=== PATIENT | female | born 1990 | race Hispanic/Latino ===

== ENCOUNTER 2024-02-27 21:44 | Emergency (ER) | payer OTHER ==
[2024-02-27 22:22] LABS: Bilirubin Negative (Negative); Blood, Urine 3+ (Negative); CAUTI Indications for Culture Acute Hematuria; Clarity Turbid (Clear); Glucose, Urine (Dipstick) Normal (Negative); Ketone, Urine Negative (Negative); Leukocyte Negative Leu/uL (Negative); Nitrite Negative (Negative); Pregnancy Test - Urine (BHCG) Negative (Negative); Pregu Control Background? CLEAR/WHITE (CLR/WHITE); Pregu Control Bar Appear? YES (CONTROL BAR); Protein, Urine (Dipstick) 50 mg/dL (Neg-Trace); RBC/HPF Greater than 50 HPF (0-3); Specific Gravity 1.026 (1.002-1.036); Specific Gravity, Urine 1.026 (1.002-1.036); Squamous Epithelial 0-3 HPF (0-3); Urobilinogen Normal mg/dL (Less than 2); WBC/HPF 0-3 HPF (0-3); pH, Urine 5.5 (5.0-9.0)
[2024-02-27 22:23] LABS: Bacteria/HPF 1+ HPF (None Seen); Urine Culture Reflex No No
[2024-02-27 23:15] LABS: #Basophils 0.04 10x3/uL (0.0-0.2); %Basophils 0.3 % (0.0-1.0); %Eosinophils 0.6 % (0.0-10.0); %Lymphocytes 13.5 % (21.0-51.0); %Monocytes 6.9 % (0.0-10.0); %Neutrophils 78.4 % (42.0-75.0); Hematocrit 46.4 % (36.0-47.0); Hemoglobin 15.8 g/dL (12.0-16.0); Mean Corpuscular HGB CONC 34.1 g/dL (32.0-36.0); Mean Corpuscular Hemoglobin 29.2 pg (27.0-31.0); Mean Corpuscular Volume 85.6 fL (78.0-98.0); Mean Platelet Volume 10.2 fL (7.4-10.4); Platelet Count 332 10x3/uL (130-400); RBC Distribution Width 12.7 % (11.5-14.5); Red Blood Cell (RBC) Count 5.42 mill/uL (4.20-5.40)
[2024-02-27] MEDS ORDERED: Ketorolac Tromethamine 30 MG (1 mL) VIAL ONE (23:17)
[2024-02-27] MEDS ORDERED: Ondansetron PF 4 MG/2 ML Vial ONE (23:27)
[2024-02-27] MEDS ORDERED: Morphine 4 MG/ML VIAL ONE (23:39)
[2024-02-27 23:50] LABS: ALT (SGPT) 34 U/L (8-55); AST (SGOT) 19 U/L (5-34); Albumin 3.8 g/dL (3.5-5.0); Alkaline Phosphatase 69 U/L (40-110); Anion Gap 15 mmol/L (10-20); BUN (Urea Nitrogen) 11 mg/dL (7.0-18.7); Bilirubin, Total 0.4 mg/dL (0.2-1.2); Calc. Creatinine Clearance 0 mL/min (70-130); Calcium 9.5 mg/dL (7.8-10.44); Carbon Dioxide 20 mmol/L (22-29); Chloride 107 mmol/L (98-107); Estimated GFR 114; Globulin 4.3 g/dL (2.4-3.5); Glucose 99 mg/dL (70-105); Protein, Total 8.1 g/dL (6.0-8.3); Sodium 138 mmol/L (136-145)
== END 2024-02-28 01:38 | disposition home or self-care (01) ==
LOC: ERS 21:44
DX: N20.0 Calculus of kidney (principal); R11.10 Vomiting, unspecified
CPT/HCPCS: 36415; 74176; 80053; 81001; 81025; 85025; J1885; J2270; J2405

== ENCOUNTER 2024-02-28 05:48 | Observation (INO) | payer OTHER ==
[2024-02-28] MEDS ORDERED: Ketorolac Tromethamine 30 MG (1 mL) VIAL ONE ×2 (06:04→13:32)
[2024-02-28] MEDS ORDERED: Ondansetron PF 4 MG/2 ML Vial ONE ×4 (06:04→13:32)
[2024-02-28 06:37] LABS: #Basophils 0.03 10x3/uL (0.0-0.2); %Basophils 0.2 % (0.0-1.0); %Eosinophils 0.2 % (0.0-10.0); %Lymphocytes 8.5 % (21.0-51.0); %Monocytes 6.3 % (0.0-10.0); %Neutrophils 84.5 % (42.0-75.0); Hematocrit 43.8 % (36.0-47.0); Hemoglobin 15.1 g/dL (12.0-16.0); Mean Corpuscular HGB CONC 34.5 g/dL (32.0-36.0); Mean Corpuscular Hemoglobin 29.4 pg (27.0-31.0); Mean Corpuscular Volume 85.2 fL (78.0-98.0); Mean Platelet Volume 10.5 fL (7.4-10.4); Platelet Count 319 10x3/uL (130-400); RBC Distribution Width 12.6 % (11.5-14.5); Red Blood Cell (RBC) Count 5.14 mill/uL (4.20-5.40)
[2024-02-28 06:55] LABS: ALT (SGPT) 33 U/L (8-55); AST (SGOT) 20 U/L (5-34); Albumin 3.5 g/dL (3.5-5.0); Alkaline Phosphatase 67 U/L (40-110); Anion Gap 12 mmol/L (10-20); BUN (Urea Nitrogen) 12 mg/dL (7.0-18.7); Bilirubin, Total 0.4 mg/dL (0.2-1.2); Calc. Creatinine Clearance 0 mL/min (70-130); Calcium 8.8 mg/dL (7.8-10.44); Carbon Dioxide 19 mmol/L (22-29); Chloride 106 mmol/L (98-107); Estimated GFR 104; Globulin 4.2 g/dL (2.4-3.5); Glucose 136 mg/dL (70-105); Lipase 35 U/L (8-78); Magnesium 1.8 mg/dL (1.6-2.6); Potassium 4.1 mmol/L (3.5-5.1); Protein, Total 7.7 g/dL (6.0-8.3); Sodium 133 mmol/L (136-145)
[2024-02-28] MEDS ORDERED: Morphine 4 MG/ML VIAL ONE (06:55)
[2024-02-28 08:43] LABS: Bacteria/HPF 1+ HPF (None Seen); Bilirubin Negative (Negative); Blood, Urine 3+ (Negative); CAUTI Indications for Culture Pelvic or flank pain; Clarity Turbid (Clear); Glucose, Urine (Dipstick) Normal (Negative); Ketone, Urine 20 mg/dL (Negative); Leukocyte 75 Leu/uL (Negative); Nitrite Negative (Negative); Protein, Urine (Dipstick) Negative (Neg-Trace); Urobilinogen Normal mg/dL (Less than 2); pH, Urine 6.5 (5.0-9.0)
[2024-02-28 08:44] LABS: Urine Culture Reflex No No
[2024-02-28] MEDS ORDERED: Morphine 2 MG/ML VIAL SLOW IVP PRN (09:10)
[2024-02-28] MEDS ORDERED: Ondansetron ODT 4 MG TAB PO PRN (09:10)
[2024-02-28] MEDS ORDERED: Ketorolac Tromethamine 30 MG (1 mL) VIAL IVP PRN (09:10)
[2024-02-28] MEDS ORDERED: hydrALAZINE 20 MG/ML VIAL SLOW IVP PRN (09:54)
[2024-02-28 10:16] VITALS: BMI 36.6
[2024-02-28] MEDS: Sodium Chloride 0.9% 1,000 ML IV SCH (10:33)
[2024-02-28] MEDS: Acetaminophen 325 MG TAB PO SCH (10:33)
[2024-02-28] MEDS: cefTRIAXone\\ROCEPHIN 1 GM in Sodium Chloride 0.9% 100 ML IVPB SCH (10:33)
[2024-02-28] MEDS ORDERED: Iopamidol 30 ML ONE (11:39)
[2024-02-28] MEDS ORDERED: PROPOFOL 20 ML ONE (13:32)
[2024-02-28] MEDS ORDERED: Lidocaine 1% PF 5 ML VIAL ONE (13:32)
[2024-02-28] MEDS ORDERED: Dexamethasone 20 MG/5 ML VIAL ONE (14:29)
[2024-02-28] MEDS ORDERED: fentaNYL 50 mcg/mL 1 mL Vial ONE (14:32)
[2024-02-28 15:59] VITALS: BP 127/84; TEMP 98
[2024-02-28] MEDS ORDERED: Famotidine 20 MG TAB PO SCH (21:00)
== END 2024-02-28 18:31 | disposition home or self-care (01) ==
LOC: ERS 05:48 → MSONC 09:28
PROVIDERS: ADMIT Internal Medicine; ATTEND Internal Medicine
PROC: 0T768DZ Dilation of Right Ureter with Intraluminal Device, Via Natural or Artificial Opening Endoscopic (ICD-10-PCS; principal; 2024-02-28)
DX: N20.2 Calculus of kidney with calculus of ureter (principal); D72.829 Elevated white blood cell count, unspecified; Z87.442 Personal history of urinary calculi
CPT/HCPCS: 36415; 74176; 74420; 80053; 81001; 81025; 83605; 83690; 83735; 85025; 87086; 96361; 96374; 96375; 96376; C2617; G0378; J0696; J1100; J1885; J2270; J2405; J2704; J3010; J3490; J7050; Q9967

== ENCOUNTER 2024-03-21 08:23 | Outpatient (CLI) | payer OTHER ==
[2024-03-21 10:34] LABS: Hematocrit 44.5 % (34.9-44.5); Hemoglobin 15.3 g/dL (12.0-15.5); Mean Corpuscular HGB CONC 34.4 g/dL (32.0-36.0); Mean Corpuscular Hemoglobin 29.9 pg (27.0-33.0); Mean Corpuscular Volume 87.1 fL (81.6-98.3); Mean Platelet Volume 11.1 fL (7.4-10.4); Platelet Count 294 10x3/uL (150-450); RBC Distribution Width 12.7 % (11.5-14.5); Red Blood Cell (RBC) Count 5.11 10x6/uL (3.90-5.03); White Blood Cell (WBC) Count 8.8 10x3/uL (3.5-10.5)
[2024-03-21 10:57] LABS: INR-International Normal Ratio 0.9; Prothrombin Time 10.3 sec (9.5-12.1)
[2024-03-21 11:00] LABS: Anion Gap 12 mmol/L (10-20); BUN (Urea Nitrogen) 8 mg/dL (7.0-18.7); Calc. Creatinine Clearance 0 mL/min (70-130); Calcium 9.4 mg/dL (7.8-10.44); Carbon Dioxide 25 mmol/L (22-29); Chloride 106 mmol/L (98-107); Estimated GFR 117; Glucose 90 mg/dL (70-105); Potassium 4.3 mmol/L (3.5-5.1); Sodium 139 mmol/L (136-145)
[2024-03-21 11:12] LABS: BHCG - Serum Negative (NEGATIVE); Pregs Control Background? CLEAR/WHITE (CLR/WHITE); Pregs Control Bar Appear? YES (CONTROL BAR)
== END 2024-03-21 08:24 | disposition home or self-care (01) ==
LOC: LABBT 08:23
PROVIDERS: ATTEND Urology
DX: Z01.812 Encounter for preprocedural laboratory examination (principal); N20.1 Calculus of ureter
CPT/HCPCS: 80048; 84703; 85027; 85610; 85730; 87086

== ENCOUNTER 2024-03-27 09:40 | Day surgery (SDC) | payer OTHER ==
[2024-03-21 08:55] VITALS: BMI 37.5
[2024-03-27] MEDS ORDERED: CEFAZOLIN 2 GM VIAL ONE (11:28)
[2024-03-27] MEDS ORDERED: Sodium Chloride 0.9% 100 ML ONE (11:29)
[2024-03-27] MEDS ORDERED: PROPOFOL 20 ML ONE ×2 (11:47→13:14)
[2024-03-27] MEDS ORDERED: fentaNYL 50 mcg/mL 1 mL Vial ONE (11:47)
[2024-03-27] MEDS ORDERED: Lidocaine 1% PF 5 ML VIAL ONE (11:48)
[2024-03-27] MEDS ORDERED: Rocuronium Bromide 10 MG/ML (10ML VIAL) ONE (11:48)
[2024-03-27] MEDS ORDERED: Midazolam HCl 2 mg/2 ml Vial ONE (11:48)
[2024-03-27] MEDS ORDERED: Ondansetron PF 4 MG/2 ML Vial ONE (12:07)
[2024-03-27] MEDS ORDERED: Dexamethasone 20 MG/5 ML VIAL ONE (12:07)
[2024-03-27] MEDS ORDERED: Iopamidol 15 ML ONE (12:20)
[2024-03-27] MEDS ORDERED: SUGAMMADEX SODIUM 200 MG/2 ML VIAL ONE (12:56)
[2024-03-27] MEDS ORDERED: Meperidine HCl/PF 25 MG (1 mL) VIAL ONE (13:34)
== END 2024-03-27 15:07 | disposition home or self-care (01) ==
LOC: SDC 09:40
PROVIDERS: ATTEND Urology
PROC: 0T768DZ Dilation of Right Ureter with Intraluminal Device, Via Natural or Artificial Opening Endoscopic (ICD-10-PCS; principal; 2024-03-27)
PROC: 0TC68ZZ Extirpation of Matter from Right Ureter, Via Natural or Artificial Opening Endoscopic (ICD-10-PCS; principal; 2024-03-27)
DX: N20.2 Calculus of kidney with calculus of ureter (principal); Z79.899 Other long term (current) drug therapy
CPT/HCPCS: 82365; 88300; C1747; C1769; C2617; J1100; J2175; J2250; J2405; J2704; J3010; Q9967